=== PATIENT | male | born 1970 | race Caucasian/White ===

== ENCOUNTER 2020-05-18 07:53 | Outpatient (CLI) | payer BC, SELFPAY ==
[2020-05-23 06:51] LABS: SARS-CoV-2 RNA Undetected (Undetected); SARS-CoV-2 Specimen Source Nasopharynx
== END 2020-05-18 08:13 ==
PROVIDERS: Visit Provider Nurse Practitioner Primary Care
DX: Z11.59 Encounter for screening for other viral diseases (principal)
CPT/HCPCS: U0003